=== PATIENT | male | born 1960 | race Hispanic/Latino ===

== ENCOUNTER 2024-05-31 13:28 | Inpatient (IN) | payer SELFPAY ==
[~2024-05-31] VITALS: Ht 167.6 cm; Wt 71.2 kg
[2024-05-31] VITALS (12 sets, daily range): BP systolic 110–149; BP diastolic 65–86
[2024-05-31] MEDS ORDERED: SODIUM CHLORIDE 0.9% 1,000 ML IV ONE ×2 (13:50→21:20)
[2024-05-31] MEDS ORDERED: ACETAMINOPHEN 500 MG TAB PO ONE (13:50)
[2024-05-31 14:02] LABS: BASO% 0.3 % (0-3); EOS% 0.4 % (0-8); HEMATOCRIT 43.2 % (39.0-50.0); HEMOGLOBIN 14.3 g/dl (14.0-18.0); IMMATURE GRANULOCYTES 0.8 % (0.0-5.0); LYMPH% 13.5 % (15-41); MEAN CELL VOLUME 83.2 fL CALC (80.0-100.0); MEAN CORPUSCULAR HGB 27.6 pG CALC (26.0-32.0); MEAN CORPUSCULAR HGB CONC 33.1 g/dL CAL (32.0-36.0); MONO% 8.9 % (2-13); NEUT# 10.89 thou/uL (1.82-7.42); NEUT% 76.1 % (42-76); RED BLOOD COUNT 5.19 mill/uL (4.70-6.10); RED CELL DISTRI WIDTH 13.7 % (11.5-15.5)
[2024-05-31 14:10] LABS: ALBUMIN 4.3 g/dL (3.2-5.0); BILIRUBIN, TOTAL 0.8 mg/dL (0.2-1.3); CREATININE 0.9 mg/dL (0.7-1.3); POTASSIUM 4.4 mmol/l (3.5-5.1); TOTAL PROTEIN 7.7 g/dL (6.3-8.2)
[2024-05-31] MEDS ORDERED: cefTRIAXone SODIUM 2 GM in SODIUM CHLORIDE 0.9% 100 ML IV ONE (15:00)
[2024-05-31] MEDS ORDERED: AZITHROMYCIN 250 MG/TAB PO ONE (15:00)
[2024-05-31] MEDS ORDERED: Iopamidol 370 (Isovue) 76% 100 ML SDV IV ONE (17:00)
[2024-05-31] MEDS ORDERED: ONDANSETRON HCl 4 MG/2 ML SDV IV ONE (17:50)
[2024-05-31] MEDS ORDERED: ASPIRIN 81 MG/TAB PO ONE (18:05)
[2024-05-31] MEDS ORDERED: FUROSEMIDE 40 MG/4 ML SDV IV ONE (19:00)
[2024-05-31] MEDS ORDERED: DOXYCYCLINE HYCLATE 100 MG in SODIUM CHLORIDE 0.9% 100 ML IV ONE (21:20)
[2024-05-31] MEDS ORDERED: ACETAMINOPHEN 500 MG TAB PO PRN (21:20)
[2024-05-31] MEDS ORDERED: ONDANSETRON HCl 4 MG/2 ML SDV IV PRN (21:20)
[2024-05-31] MEDS ORDERED: ENOXAPARIN SODIUM 80 MG/0.8 ML SYR SC SCH (22:00)
[2024-06-01] VITALS (8 sets, daily range): BP systolic 118–142; BP diastolic 68–80
[2024-06-01] MEDS ORDERED: SODIUM CHLORIDE 0.9% 500 ML IV PRN (01:25)
[2024-06-01] MEDS ORDERED: DOXYCYCLINE HYCLATE 100 MG in SODIUM CHLORIDE 0.9% 100 ML IV SCH (02:00)
[2024-06-01] MEDS ORDERED: SODIUM CHLORIDE 0.9% 250 ML IV PRN (07:10)
[2024-06-01] MEDS ORDERED: ENOXAPARIN SODIUM 80 MG/0.8 ML SYR SC SCH (14:00)
[2024-06-01] MEDS ORDERED: PANTOPRAZOLE SODIUM Sesquihydr 40 MG/TAB PO SCH (15:00)
[2024-06-01] MEDS ORDERED: methylPREDNISolone Sod Succ 40 MG/ML SDV IV SCH (15:00)
[2024-06-01] MEDS ORDERED: IPRATROPIUM-Albuterol 0.5MG-2.5MG/3 ML NEB SCH (15:00)
[2024-06-01] MEDS ORDERED: LACTATED RINGER'S 1,000 ML IV PRN (15:00)
[2024-06-01] MEDS ORDERED: ENOXAPARIN SODIUM 40 MG/0.4 ML SYR SC SCH (21:00)
[2024-06-02] VITALS (7 sets, daily range): BP systolic 118–136; BP diastolic 67–72
[2024-06-02 05:40] LABS: BASO% 0.3 % (0-3); HEMATOCRIT 42.6 % (39.0-50.0); HEMOGLOBIN 13.4 g/dl (14.0-18.0); IMMATURE GRANULOCYTES 0.1 % (0.0-5.0); LYMPH% 9.9 % (15-41); MEAN CELL VOLUME 85.9 fL CALC (80.0-100.0); MEAN CORPUSCULAR HGB CONC 31.5 g/dL CAL (32.0-36.0); MONO% 1.2 % (2-13); NEUT# 6.9 thou/uL (1.82-7.42); NEUT% 88.5 % (42-76); RED BLOOD COUNT 4.96 mill/uL (4.70-6.10); RED CELL DISTRI WIDTH 13.3 % (11.5-15.5)
[2024-06-02 06:06] LABS: ALBUMIN 3.9 g/dL (3.2-5.0); BILIRUBIN, TOTAL 0.5 mg/dL (0.2-1.3); CREATININE 0.7 mg/dL (0.7-1.3); MAGNESIUM 2.1 mg/dL (1.6-2.3); POTASSIUM 4.6 mmol/l (3.5-5.1); TOTAL PROTEIN 7.1 g/dL (6.3-8.2)
[2024-06-02] MEDS ORDERED: IPRATROPIUM-Albuterol 0.5MG-2.5MG/3 ML NEB PRN (13:25)
[2024-06-03] VITALS (11 sets, daily range): BP systolic 112–135; BP diastolic 54–88
[2024-06-03 05:43] LABS: BASO% 0.3 % (0-3); HEMATOCRIT 41.7 % (39.0-50.0); HEMOGLOBIN 13.5 g/dl (14.0-18.0); IMMATURE GRANULOCYTES 0.9 % (0.0-5.0); LYMPH% 13.1 % (15-41); MEAN CELL VOLUME 85.5 fL CALC (80.0-100.0); MEAN CORPUSCULAR HGB 27.7 pG CALC (26.0-32.0); MEAN CORPUSCULAR HGB CONC 32.4 g/dL CAL (32.0-36.0); MONO% 4.7 % (2-13); NEUT# 7.9 thou/uL (1.82-7.42); RED BLOOD COUNT 4.88 mill/uL (4.70-6.10); RED CELL DISTRI WIDTH 13.4 % (11.5-15.5)
[2024-06-03 05:54] LABS: ALBUMIN 3.7 g/dL (3.2-5.0); BILIRUBIN, TOTAL 0.5 mg/dL (0.2-1.3); CREATININE 0.8 mg/dL (0.7-1.3); POTASSIUM 4.7 mmol/l (3.5-5.1); TOTAL PROTEIN 6.8 g/dL (6.3-8.2)
[2024-06-03] MEDS ORDERED: LOSARTAN Potassium 25 MG/TAB PO SCH (10:00)
[2024-06-03] MEDS ORDERED: FUROSEMIDE 20 MG/TAB PO SCH (10:00)
[2024-06-03] MEDS ORDERED: ASPIRIN EC 81 MG/TAB PO SCH (10:00)
[2024-06-03] MEDS ORDERED: METOPROLOL SUCCINATE 25 MG/TAB-TOPROL XL PO SCH (10:00)
[2024-06-03] MEDS ORDERED: ATORVASTATIN CALCIUM 40 MG/TAB PO SCH (21:00)
[2024-06-04 00:24] VITALS: BP 131/71
[2024-06-04 04:30] VITALS: BP 114/63
[2024-06-04 04:49] VITALS: BP 114/63
[2024-06-04 05:46] LABS: BASO% 0.5 % (0-3); EOS% 1.1 % (0-8); HEMATOCRIT 43.9 % (39.0-50.0); HEMOGLOBIN 14.5 g/dl (14.0-18.0); IMMATURE GRANULOCYTES 0.3 % (0.0-5.0); LYMPH% 33.2 % (15-41); MEAN CELL VOLUME 84.9 fL CALC (80.0-100.0); MONO% 9.8 % (2-13); NEUT# 5.7 thou/uL (1.82-7.42); NEUT% 55.1 % (42-76); RED BLOOD COUNT 5.17 mill/uL (4.70-6.10); RED CELL DISTRI WIDTH 13.2 % (11.5-15.5)
[2024-06-04 05:51] LABS: ALBUMIN 3.6 g/dL (3.2-5.0); BILIRUBIN, TOTAL 0.5 mg/dL (0.2-1.3); CREATININE 0.9 mg/dL (0.7-1.3); MAGNESIUM 2.2 mg/dL (1.6-2.3); POTASSIUM 4.2 mmol/l (3.5-5.1); TOTAL PROTEIN 6.8 g/dL (6.3-8.2)
[2024-06-04 06:16] VITALS: BP 126/81
[2024-06-04] MEDS ORDERED: ADLT ASA LOW81 MG PO (08:45)
[2024-06-04] MEDS ORDERED: ATORVASTATIN CA40 MG PO (08:45)
[2024-06-04] MEDS ORDERED: TOPROL XL25 M1 PO (08:45)
[2024-06-04] MEDS ORDERED: LOSARTAN POTASS25 MG PO (08:45)
[2024-06-04] MEDS ORDERED: FUROSEMIDE20 MG PO (08:46)
[2024-06-04] MEDS ORDERED: DOXYCYCLINE100 MG PO (08:47)
[2024-06-04 10:32] VITALS: BP 122/79
[2024-06-04 16:58] VITALS: BP 118/66
== END 2024-06-04 17:48 | disposition home or self-care (01) | DRG 871 ==
LOC: ED 13:28 → ED-I 19:44 → ED 19:44 → ED-I 20:44 → ED 06-01 00:43 → MS2 06-01 00:44
PROVIDERS: Family Medicine; Nurse Practitioner Family; ADMIT Internal Medicine; ATTEND Internal Medicine
DX: A41.9 Sepsis, unspecified organism (principal); I50.23 Acute on chronic systolic (congestive) heart failure; J18.9 Pneumonia, unspecified organism; J96.01 Acute respiratory failure with hypoxia; I24.89 Other forms of acute ischemic heart disease; I08.1 Rheumatic disorders of both mitral and tricuspid valves; Z20.822 Contact with and (suspected) exposure to COVID-19
CPT/HCPCS: J0696; J1650; J1940; J2405